=== PATIENT | male | born 1975 | race Caucasian/White ===

== ENCOUNTER 2019-09-24 18:36 | Emergency (ER) | payer SELFPAY ==
--- NOTE | 2019-09-24 19:11 | ER Document Report ---
ED Medical Screen (RME) - General Chief Complaint: Abscess Stated Complaint: SKIN SORE/UPPER LEFT LEG Time Seen by Provider: 09/24/19 19:02 Mode of Arrival: Ambulatory Information source: Patient Notes: 43-year-old male presented to ED for abscess to the left upper thigh. He states he just noticed it yesterday. He states yesterday he did get hot and flushed and sweaty sick to his stomach and vomited when it opened up. He states it did drain some but now it is swollen more than it was before. 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 He does smoke 1/2 pack a day does not drink or do any drugs. He is alert oriented respirations regular nonlabored speaking in full sentences. He denied need for Tylenol or Motrin at this time. I have greeted and performed a rapid initial assessment of this patient. A comprehensive ED assessment and evaluation of the patient, analysis of test results and completion of medical decision making process will be conducted by an additional ED providers. - Related Data Allergies/Adverse Reactions: Penicillins Allergy (Verified 09/24/19 19:06) Past Medical History - Social History Chew tobacco use (# tins/day): No Frequency of alcohol use: None Drug Abuse: None Physical Exam - Vital signs Vitals: Temp Pulse Resp BP Pulse Ox 98.5 F 80 16 133/72 H 99 09/24/19 18:40 09/24/19 18:40 09/24/19 18:40 09/24/19 18:40 09/24/19 18:40 Course - Vital Signs Vital signs: Temp Pulse Resp BP Pulse Ox 98.5 F 80 16 133/72 H 99 09/24/19 19:04 09/24/19 18:40 09/24/19 18:40 09/24/19 18:40 09/24/19 18:40
[2019-09-24] MEDS ORDERED: NORMAL SALINE 1000 ML 1,000 ML IV ONE (21:01)
[2019-09-24] MEDS ORDERED: VANCOMYCIN HCL INJ 1000 MG VIAL IV ONE (21:02)
--- NOTE | 2019-09-24 21:05 | ER Document Report ---
ED General - General Chief Complaint: Abscess Stated Complaint: SKIN SORE/UPPER LEFT LEG Time Seen by Provider: 09/24/19 19:02 Mode of Arrival: Ambulatory - HPI Notes: Patient is a 43-year-old male who presents to the emergency department for evaluation. He finished work yesterday. He was getting ready for a shower, when he looked down and noticed a large pustule on his left medial thigh. He states it drained some red but purulent appearing material. He states he vomited after that. He did have some chills and sweats, no yana fevers to his knowledge. He had 2 episodes of emesis yesterday. He states it continues to hurt, feels slightly more swollen, but he is not had any vomiting today. He currently puts his pain at a 3 out of 5. Immunizations are up-to-date. - Related Data Allergies/Adverse Reactions: Penicillins Allergy (Verified 09/24/19 19:06) Home Medications: None Past Medical History - General Information source: Patient - Social History Smoking Status: Current Every Day Smoker Chew tobacco use (# tins/day): No Frequency of alcohol use: None Drug Abuse: None Family History: DM, Hypertension Patient has homicidal ideation: No - Past Medical History Cardiac Medical History: Denies: Hx Congestive Heart Failure, Hx Coronary Artery Disease Pulmonary Medical History: Denies: Hx Asthma, Hx COPD Neurological Medical History: Denies: Hx Cerebrovascular Accident Malignancy Medical History: Reports None Review of Systems - Review of Systems Constitutional: See HPI Gastrointestinal: See HPI Skin: See HPI -: Yes All other systems reviewed and negative Physical Exam - Vital signs Vitals: Temp Pulse Resp BP Pulse Ox 98.5 F 80 16 133/72 H 99 09/24/19 18:40 09/24/19 18:40 09/24/19 18:40 09/24/19 18:40 09/24/19 18:40 - Notes Notes: Vital signs reviewed, please refer to chart. Head is normocephalic, atraumatic. Pupils equal round, reactive to light. Neck is supple without meningismus. Heart is regular rate and rhythm. Lungs are clear to auscultation bilaterally. Abdomen is soft, nontender, normoactive bowel sounds throughout. Extremities without cyanosis, clubbing. Posterior calves are nontender. Peripheral pulses are equal. Skin is warm and dry. Skin of the left medial thigh yields an approximately 2 cm area of denuded skin, consistent with completely deroofed pu stule/abscess. There is erythema surrounding which is mild, seems reactive. There is central granulation tissue. There is some mild edema but I do not appreciate any fluctuance or regional lymphadenopathy. Genital exam was performed with Alona Blount RN, present in the room. Patient circumcised. Bilateral testicles descended. No significant erythema. There is no erythema tracking from the wound up into the perineum. Scrotum not edematous, no perineal wounds or regional adenopathy noted. Course - Re-evaluation Re-evalutation: 09/24/19 21:04 Patient presents to the emergency department for evaluation. Given his fevers and vomiting, certainly a toxic envenomation by some sort of insect would be on the differential, but I am also concerned about the possibility of a local cellulitis. When karate instructor is available, we will do more thorough genital exam to evaluate for any signs of Jason's gangrene or more extensive involvement. At this point we will get basic blood work, blood cultures. The patient will be medicated with IV vancomycin. He is stable at this time, we will continue to monitor. 09/24/19 22:56 Patient's laboratory vesication failed to reveal any significant abnormality other than mildly elevated LFTs. The patient has no significant leukocytosis or bandemia. He was given IV vancomycin. I will send him home with oral clindamycin and close follow-up. Again I do not see any fluctuance there to further drain. He is to follow-up with primary care on Thursday, return to the ED with worsening or new concerning symptoms of any sort. - Vital Signs Vital signs: Temp Pulse Resp BP Pulse Ox 98.5 F 80 16 133/72 H 99 09/24/19 19:04 09/24/19 18:40 09/24/19 18:40 09/24/19 18:40 09/24/19 18:40 - Laboratory Result Diagrams: 09/24/19 21:45 09/24/19 21:45 Laboratory results interpreted by me: 09/24/19 21:45 Carbon Dioxide 31 H ALT 57 H Alkaline Phosphatase 27 L Discharge - Discharge Clinical Impression: Abscess of left thigh Cellulitis Qualifiers: Site of cellulitis: extremity Site of cellulitis of extremity: lower extremity Laterality: left Qualified Code(s): L03.116 - Cellulitis of left lower limb Condition: Stable Disposition: HOME, SELF-CARE Instructions: Abscess ([facility]), Cellulitis ([facility]) Additional Instructions: Keep area clean with soap and water. Take all the antibiotics as prescribed until gone, starting tomorrow. Your liver functions were mildly elevated today, this should be followed up by primary care as well. If you develop increased redness, fevers, vomiting, or any other new or concerning symptoms, please return immediately to the emergency department for evaluation.
[2019-09-24 22:11] LABS: ABSOLUTE BASOPHILS # (AUTO) 0.1 10^3/uL (0.0-0.2); ABSOLUTE EOSINOPHILS # (AUTO) 0.2 10^3/uL (0.0-0.6); ABSOLUTE LYMPHOCYTES (AUTO) 3.2 10^3/uL (0.5-4.7); ABSOLUTE MONOCYTES (AUTO) 0.9 10^3/uL (0.1-1.4); ABSOLUTE NEUT (AUTO) 4.3 10^3/uL (1.7-8.2); TOTAL CELLS COUNTED % (AUTO) 100 %; WHITE BLOOD COUNT 8.7 10^3/uL (4.0-10.5)
[2019-09-24 22:18] LABS: BASOPHILS % (AUTO) 0.9 % (0-2); EOSINOPHILS % (AUTO) 2.3 % (0-6); HEMATOCRIT 42.2 % (37.9-51.0); HEMOGLOBIN 14.2 g/dL (13.5-17.0); MEAN CORPUSCULAR HEMOGLOBIN 29.9 pg (27.0-33.4); MEAN CORPUSCULAR HGB CONC 33.5 g/dL (32.0-36.0); MEAN CORPUSCULAR VOLUME 89 fl (80-97); MONOCYTES % (AUTO) 10.6 % (3-13); PLATELET COUNT 212 10^3/uL (150-450); RED BLOOD COUNT 4.73 10^6/uL (4.35-5.55); RED CELL DISTRIBUTION WIDTH 13.5 % (11.5-14.0); SEGMENTED NEUTROPHILS % (AUTO) 49.2 % (42-78)
[2019-09-24 22:19] LABS: ALKALINE PHOSPHATASE 27 U/L (38-126); ANION GAP 5 (5-19); ASPARTATE AMINO TRANSFERASE 42 U/L (17-59); BILIRUBIN,TOTAL 0.3 mg/dL (0.2-1.3); BLOOD UREA NITROGEN 17 mg/dL (7-20); CALCIUM 9.1 mg/dL (8.4-10.2); CARBON DIOXIDE 31 mmol/L (22-30); CHLORIDE 102 mmol/L (98-107); GLUCOSE 88 mg/dL (75-110); POTASSIUM 4.2 mmol/L (3.6-5.0); TOTAL PROTEIN 6.6 g/dL (6.3-8.2)
[2019-09-24 23:09] VITALS: BP 119/65
== END 2019-09-24 23:40 | disposition home or self-care (01) ==
LOC: ER 18:36
DX: L02.416 Cutaneous abscess of left lower limb (principal); L03.116 Cellulitis of left lower limb; R50.9 Fever, unspecified; R11.10 Vomiting, unspecified; F17.200 Nicotine dependence, unspecified, uncomplicated; Z88.0 Allergy status to penicillin; R79.89 Other specified abnormal findings of blood chemistry
CPT/HCPCS: 99283; 96365; 36415; 87040; 85025; 80053; J7030; J3370